=== PATIENT | male | born 1975 | race Hispanic/Latino ===

== ENCOUNTER 2021-05-04 07:33 | Emergency (ER) | payer MEDICARE, MEDICAID, SELFPAY ==
[2021-05-04 07:40] VITALS: BP 133/67; PULSE 78; RESP 18; TEMP 36.6; O2SAT 98; BMI 39.5
[2021-05-04 07:41] VITALS: BP 133/67; PULSE 78; O2SAT 96
--- NOTE | 2021-05-04 07:45 | DI.RAD.S_ITS ---
PROCEDURE: XR SOFT TISSUE NECK INDICATIONS: possible foreign body TECHNIQUE: 2 views of the neck were acquired. COMPARISON: None. FINDINGS: Airway: The airway appears patent. Soft tissues: Prevertebral soft tissues are normal in thickness. The epiglottis and aryepiglottic folds appear normal. No soft tissue gas. Bones: No suspicious bony lesions. Visualized cervical spine is normally aligned. IMPRESSION: No radiopaque foreign body. Dictated by: Logan Peña M.D. on 05/04/2021 at 7:19 Approved by: Logan Peña M.D. on 05/04/2021 at 7:21
[2021-05-04 08:00] VITALS: BP 130/66; PULSE 75; O2SAT 97
--- NOTE | 2021-05-04 08:10 | ED.URI ---
HPI - URI/Sore Throat General Chief Complaint: Upper Respiratory Symptoms Stated Complaint: swallowed plastic, stuck in throat Time Seen by Provider: 05/04/21 07:40 Source: patient Mode of arrival: Ambulatory History of Present Illness HPI Narrative: 46-year-old male nonsmoker with noncontributory medical history presents with a chief complaint of a possible swallowed foreign body. He states that yesterday he swallowed a small piece of plastic wrapper that had been on his water bottle. He states that he feels an irritation in the right posterior part of his throat but is still able to eat and drink without difficulty. He has no throat pain, shortness of breath or cough. He has had no fever or chills. He denies nausea, vomiting or diarrhea. Review of Systems Review of Systems Narrative: GENERAL: Denies chills, fatigue, malaise, fever, sweats. HEENT: See HPI RESPIRATORY: Denies dyspnea, cough, wheezing, hemoptysis, sputum. CARDIOVASCULAR: Denies chest pain, palpitations, orthopnea, edema, GASTROINTESTINAL: Denies nausea, vomiting, abdominal pain, diarrhea, constipation, melena. : Denies dysuria, frequency, incontinence, hematuria, urinary retention. MUSCULOSKELETAL: denies weakness, joint pain, or bony pain SKIN: Denies rash, skin lesions, or other NEUROLOGIC: Denies weakness, headache, numbness, change in speech, confusion, seizures, incoordination. PSYCHIATRIC: No concerning psychosocial issues. 12 point review of systems is negative except for those stated above Patient History Social History Smoking Status: Never smoker Smoking Status: Never smoker Substance Use Type: marijuana Exam Narrative Exam Narrative: GEN: AOx3 and in mild distress EYES: Pupils are equal, round, and reactive to light and accommodation. Extraoccular muscles are intact bilaterally. There is no subconjunctival hemorrhage or exudate. ENT: no FB noted, no erythema or swelling. No blood. No obvious abnormal findings on exam. CHEST: Lungs are clear to auscultation bilaterally and free of wheezes, rales, or rhonchi. Heart rate is regular rhythm, there are no murmurs, clicks, rubs, or gallops. There is no chest wall tenderness. ABD: Abdomen is soft and nontender. There is no guarding or rebound. Bowel sounds are normal in all 4 quadrants. There is no mass or organomegaly. EXT: Full painless ROM of all extremities with no loss of sensation or strength. SKIN: Warm, pink, and dry. No erythema or rash Initial Vital Signs Initial Vital Signs: Vital Signs Temperature 97.9 F 05/04/21 07:40 Pulse Rate 78 05/04/21 07:40 Respiratory Rate 18 05/04/21 07:40 Blood Pressure 133/67 05/04/21 07:40 Pulse Oximetry 98 05/04/21 07:40 Course Orders Ordered: ED Orders 05/04/21 07:45 XR soft tissue neck Stat Vital Signs Vital signs: Vital Signs - 8 hr 05/04/21 07:40 Temperature 97.9 F Pulse Rate 78 Respiratory Rate 18 Blood Pressure 133/67 Pulse Oximetry 98 [facility] - URI/Sore Throat Imaging Data Chest x-ray: Radiologist's Impression: Launch?[address] [address] XRay Report Signed Patient: Gerry Flores MR#: [id number] : 1975 Acct:[id number] Age/Sex: 46 / M Date of Service: 05/04/21 Loc: ED Accession Number: [id number] ?? Procedure: XR soft tissue neck Ordering Provider: Reid Lane D.O. PROCEDURE:? XR SOFT TISSUE NECK ? INDICATIONS:? possible foreign body ? TECHNIQUE:? 2 views of the neck were acquired.? ? COMPARISON:? None. ? FINDINGS:? ? Airway:? The airway appears patent.? ? Soft tissues:? Prevertebral soft tissues are normal in thickness.? The epiglottis and aryepiglottic folds appear normal.? No soft tissue gas.? ? Bones:? No suspicious bony lesions.? Visualized cervical spine is normally aligned.? ? IMPRESSION:? No radiopaque foreign body.? ? ? Dictated by: Logan Peña M.D. on 05/04/2021 at 7:19 ? ? Approved by: Logan Peña M.D. on 05/04/2021 at 7:21? [facility] Narrative Medical decision making narrative: Patient suspects a small plastic foreign body, no pain no fever no shortness of breath. Patient able to eat and drink and swallow without difficulty. X-ray reassuring and no evidence of a radiopaque foreign body or free air suggesting perforation. No indication for emergent endoscopy. Return precautions given including follow-up with ENT. Questions answered to his apparent satisfaction Discharge Plan Departure Patient Disposition: Home Clinical Impression: Esophageal abrasion Instructions: DI for Removal of Foreign Body From Esophagus Activity Restrictions/Additional Instructions: *You have been diagnosed with [esophageal foreign body, or likely an abrasion. Your history, physical exam and x-ray are very reassuring *What to do: * *Please follow up with your primary care provider in 2-3 days, call for an appointment. Let them know you were seen in the Emergency Department and that we ask that you be seen in follow up. We will electronically transmit a record of today's note if your PCP is in our system. Also, I have included contact info for ENT (Ears, Nose, Throat) *Return to Emergency Department if you should have any new, worsening or concerning symptoms, such as [fever greater than 101 F, shaking chills, worsening pain, persistent vomiting or other bothersome symptoms] Referrals: Nicola Ronquillo MD [Physician] -
[2021-05-04 08:30] VITALS: BP 128/62; PULSE 68; PULSE 70; RESP 20; O2SAT 96; O2SAT 98
== END 2021-05-04 08:30 | disposition home or self-care (01) ==
PROVIDERS: Emergency Provider Emergency Medicine
DX: S27.818A Other injury of esophagus (thoracic part), initial encounter (principal); X58.XXXA Exposure to other specified factors, initial encounter
CPT/HCPCS: 70360; 99283